=== PATIENT | male | born 1945 | race Caucasian/White ===

== ENCOUNTER 2023-04-29 15:43 | Emergency (ER) | payer MEDICARE, BC, SELFPAY ==
[2023-04-29] VITALS (10 sets, daily range): BP systolic 144–173; BP diastolic 59–83; PULSE 54–66; RESP 12–14; TEMP 36.3; O2SAT 94–97; BMI 33.2
--- NOTE | 2023-04-29 15:47 | CRLHL7_ITS ---
For Patients: As a result of the Century Cures Act, medical imaging exams and procedure reports are released immediately into your electronic medical record. You may view this report before your referring provider. If you have questions, please contact your health care provider. INDICATION: eft leg weakness, resolved, previous stroke COMPARISON: MRI/CT brain 03/06/2020 TECHNIQUE: A CT volumetric acquisition was performed of the brain without IV contrast. Please note that all CT scans at this facility use dose modulation, iterative reconstruction, and/or weight-based dosing when appropriate to reduce radiation dose to as low as reasonably achievable. FINDINGS: No intracranial hemorrhage, mass or mass effect. No midline shift or hydrocephalus. Atherosclerotic changes involving the right vertebral artery. No extra-axial fluid collection. Moreno-white differentiation is maintained. Mild bilateral maxillary sinus disease. IMPRESSION: No intracranial hemorrhage. Please note that all CT scans at this facility use dose modulation, iterative reconstruction, and/or weight-based dosing when appropriate to reduce radiation dose to as low as reasonably achievable. Dictated by Stephane Jane MD @ 04/29/2023 5:23:38 PM (Electronically Signed)
--- NOTE | 2023-04-29 16:19 | ED.NURSE ---
1539-MD meets Pt in [facility], to CT. GCS 15. No neuro deficits on arrival. Dr. Voss declines Stroke Code. 1552-Pt to Rm [address] by w/c. Hx of TIA, Afib, HTN, HLD, Triple Bypass.
--- NOTE | 2023-04-29 16:28 | CRLHL7_ITS ---
For Patients: As a result of the Century Cures Act, medical imaging exams and procedure reports are released immediately into your electronic medical record. You may view this report before your referring provider. If you have questions, please contact your health care provider. INDICATION: Acute stroke, left leg weakness, dizziness. TECHNIQUE: CTA head with contrast bolus tracking, 3D angiographic rendering using maximum intensity projection (MIP) and images permanently archived. FINDINGS: There is heavily calcified atherosclerotic plaque around the carotid siphons resulting in moderate stenoses on both sides. There is otherwise normal opacification of the intracranial vasculature. There is no large vessel occlusion. No aneurysm is identified. IMPRESSION: No large vessel occlusion. Please note that all CT scans at this facility use dose modulation, iterative reconstruction, and/or weight-based dosing when appropriate to reduce radiation dose to as low as reasonably achievable. Dictated by Pako Del Real MD @ 04/29/2023 7:45:35 PM (Electronically Signed)
--- NOTE | 2023-04-29 16:28 | ED_ITS ---
HPI - Neuro Symptoms/Deficit General Date Seen: 04/29/23 Chief Complaint: Neuro Symptoms/Altered Deficit Stated Complaint: Stroke like symptoms Time Seen by Provider: 04/29/23 15:46 Source: patient and EMS Mode of arrival: EMS Limitations: no limitations History of Present Illness HPI Narrative: Patient is a 77-year-old male presenting to emergency department after concern for stroke-like symptoms. He was brought in by EMS. While eating today at about 215 the patient said he developed a couple minutes of dizziness and states his left leg became very tense any is unable to bend it. The symptoms resolved. He states the leg became so tense it was causing his leg to push against the table and making him fall to the right side. Of note he had a previous hemorrhagic stroke which at that time he had dizziness and that was residual left leg weakness. States now he feels back to his baseline. Also states in the past he was told he a TIA and that time he had dizziness also. No history of seizures. Denies fevers, chills, weakness, headache, vision changes, abdominal pain, numbness, diarrhea, constipation, chest pain, shortness of breath. No other concerns noted at this time. Of note he is on Eliquis for AFib. Related Data Allergies Allergy/AdvReac Type Severity Reaction Status Date / Time metformin AdvReac Unknown GI upset Verified 04/29/23 17:48 Review of Systems Status of ROS: Reports: 10 or more systems reviewed and unremarkable except as noted in History and below [facility] Social History Smoking Status: Never smoker How often do you have a drink containing alcohol: never AUDIT-C Alcohol total score: 0 Non-prescribed substance use: denies use Exam Narrative: Exam Narrative: Const: Well-nourished, Well-developed, in no distress Eyes: PERRL, no conjunctival injection, and symmetrical lids HENT: Atraumatic external nose and ears. Moist mucous membranes. Neck: Symmetric, trachea midline, No thyromegaly. CVS: RRR, No murmurs or gallops. Peripheral pulses 2+ and equal in all extremities RESP: Unlabored respiratory effort. Clear to auscultation bilaterally. GI: Nontender/Nondistended, No rebound or guarding. MSK:Extremities w/o deformity, Normal Active ROM Skin: Warm, Dry. No rashes or lesions. Neuro: Normal Muscle tone, Cranial nerves 2-12 grossly intact, normal [id number], normal [id number], normal gait, normal strength 5/5 upper lower extremities bilaterally, normal sensation upper and lower extremities bilaterally, normal rapid alternating movements. Psych: Awake, Alert, & Oriented x3. Appropriate mood and affect. Const: Vital Signs, click to edit/add: Vital Signs - 24 hr 04/29/23 15:52 04/29/23 15:54 04/29/23 16:02 Temperature 97.3 F L Pulse Rate 66 64 Pulse Rate [Pulse Oximeter] 60 Respiratory Rate 14 14 14 Blood Pressure 173/81 H 158/78 H Blood Pressure [Ri ght Upper Arm] 173/81 H Pulse Oximetry 97 96 97 Oxygen Delivery Me thod Room Air 04/29/23 16:20 04/29/23 16:33 04/29/23 16:47 Temperature Pulse Rate 60 60 54 L Pulse Rate [Pulse Oximeter] Respiratory Rate 12 14 14 Blood Pressure 162/70 H 148/83 H 145/59 H Blood Pressure [Ri ght Upper Arm] Pulse Oximetry 96 96 96 Oxygen Delivery Me thod 04/29/23 17:02 04/29/23 17:58 04/29/23 18:00 Temperature Pulse Rate 55 L 65 58 L Pulse Rate [Pulse Oximeter] Respiratory Rate 14 Blood Pressure 144/64 H Blood Pressure [Ri ght Upper Arm] Pulse Oximetry 96 95 96 Oxygen Delivery Me thod 04/29/23 18:30 Temperature Pulse Rate 63 Pulse Rate [Pulse Oximeter] Respiratory Rate Blood Pressure Blood Pressure [Ri ght Upper Arm] Pulse Oximetry 94 Oxygen Delivery Me thod Course Vital Signs Vital signs: Initial Vital Signs Temperature 97.3 F L 04/29/23 15:52 Temperature Source Temporal Artery Scan 04/29/23 15:52 Pulse Rate 60 04/29/23 15:52 Pulse Rhythm Regular 04/29/23 15:52 Respiratory Rate 14 04/29/23 15:52 Blood Pressure 173/81 H 04/29/23 15:52 Blood Pressure Mean 111 H 04/29/23 15:52 Blood Pressure Position Supine 04/29/23 15:52 Pulse Oximetry 97 04/29/23 15:52 Oxygen Delivery Method Room Air 04/29/23 15:52 Vital Signs Temperature 97.3 F L 04/29/23 15:52 Pulse Rate 60 04/29/23 15:52 Respiratory Rate 14 04/29/23 15:52 Blood Pressure 173/81 H 04/29/23 15:52 Pulse Oximetry 97 04/29/23 15:52 Oxygen Delivery Method Room Air 04/29/23 15:52 Temperature 97.3 F L 04/29/23 15:52 Pulse Rate 63 04/29/23 18:30 Respiratory Rate 14 04/29/23 17:02 Blood Pressure 144/64 H 04/29/23 17:02 Pulse Oximetry 94 04/29/23 18:30 Oxygen Delivery Method Room Air 04/29/23 15:52 MDM - Neuro Symptoms/Deficit MDM Narrative Medical decision making narrative: Patient is a 77-year-old male presenting to emergency department for concern for stroke-like symptoms. When patient arrived to the emergency department I met them in the hallway and by this time the symptoms have fully resolved. He did go straight to head CT but I did not find necessary to call a code stroke. The patient he returned from CT and go assess the/RSV test, CBC, CMP, troponin, EKG urinalysis all ordered. His description of the symptoms make me concern for possible seizure. We will order CTA is once his head CT returned showing no abnormalities. CBC, CMP showed no concerning findings. COVID/flu/RSV is negative. Head CT reviewed by myself and the radiologist shows no concerning findings. CTA were ordered. They returned showing no acute concerning for causes of his symptoms. Patient has been asymptomatic his entire time emergency department. Vital signs have been stable. Urinalysis is normal. We are paging Neurology at this time. Spoke to the on-call neurologist from [facility] any states this is not classical presentation for a seizure but it could be. He does not think he needs to be started on seizure medicine at this time but does want him to follow up with Neurology outpatient. I spoke to the patient about this and he is agreeable with this plan. Patient to be discharged home Lab Data Labs: Lab Results 04/29/23 04/29/23 04/29/23 Range/Units 16:00 16:33 17:13 WBC 8.28 (4.50-11.00) K/uL RBC 4.81 (4.30-5.90) m/uL Hgb 14.5 (13.5-17.5) gm/dL Hct 44.6 (37.0-53.0) % MCV 93 (80-100) fL MCH 30 (26-34) pg MCHC 33 (32-36) gm/dL RDW Coeff of Denzel 12.9 (11.5-15.5) % Plt Count 250 (140-440) K/uL Neut % (Auto) 75.3 H (42.0-72.0) % Lymph % (Auto) 14.6 L (20-44) % Hickory % (Auto) 7.9 (0.0-11.0) % Eos % (Auto) 1.7 (0.0-7.0) % Baso % (Auto) 0.4 (0.0-3.0) % Neut # (Auto) 6.20 (1.7-7.0) K/uL Lymph # (Auto) 1.20 (0.90-2.90) K/uL [place] # (Auto) 0.70 (0.00-0.90) K/UL Eos # (Auto) 0.14 (0.00-0.50) K/uL Baso # (Auto) 0.03 (0.00-0.30) K/uL Abs Immat Gran (auto) 0.01 (0.00-0.30) K/uL Imm/Tot Granulo (auto) 0.1 % Sodium 137 (135-149) mmol/L Potassium 3.7 (3.6-5.1) mmol/L Chloride 101 (96-114) mmol/L Carbon Dioxide 26 (20-32) mmol/L Anion Gap 10 (7-15) mEq/L BUN 23 (7-30) mg/dL Creatinine 0.9 (0.5-1.5) mg/dL Estimated Creat Clear 65.89 Estimated GFR 88 ml/min Glucose 162 H (60-115) mg/dL Lactate (0.5-1.9) mmol/L Calcium 9.3 (8.4-10.6) mg/dL Total Bilirubin 0.9 (0.1-1.5) mg/dL AST 32 (12-35) U/L ALT 29 (4-50) U/L Alkaline Phosphatase 67 (40-150) U/L Troponin I 0.03 (0.01-0.04) ng/mL Total Protein 7.7 (6.0-8.3) g/dL Albumin 4.4 (3.3-5.0) g/dL Urine Color Yellow (Yellow) Urine Appearance Clear (Clear) Urine pH 6.0 (5.0-8.5) Ur Specific Saffell >= 1.030 (1.000-1.030) Urine Protein 3+ A (Negative) Urine Glucose (UA) Negative (Negative) Urine Ketones Negative (Negative) Urine Blood Trace-lysed A (Negative) Urine Nitrite Negative (Negative) Urine Bilirubin Negative (Negative) Urine Urobilinogen 1.0 (0.2-1.0) Ur Leukocyte Esterase Negative (Negative) Urine RBC 0-2 (0-2) Urine WBC 0-2 (0-5) Ur Squamous Epith Cells None (None-Few) Amorphous Sediment Few A (None) Other Sediment Few A (None) Urine Bacteria Few A (None) Hyaline Casts Few (None-Few) SARS-CoV-2 (PCR) Negative SARS-CoV-2 (Negative) Influenza Type A (PCR) Negative PCR FLU A (Negative) Influenza Type B (PCR) Negative PCR FLU B (Negative) RSV (PCR) Negative PCR RSV (Negative) 04/29/23 Range/Units 18:53 WBC (4.50-11.00) K/uL RBC (4.30-5.90) m/uL Hgb (13.5-17.5) gm/dL Hct (37.0-53.0) % MCV (80-100) fL MCH (26-34) pg MCHC (32-36) gm/dL RDW Coeff of Denzel (11.5-15.5) % Plt Count (140-440) K/uL Neut % (Auto) (42.0-72.0) % Lymph % (Auto) (20-44) % [place]ickory % (Auto) (0.0-11.0) % Eos % (Auto) (0.0-7.0) % Baso % (Auto) (0.0-3.0) % Neut # (Auto) (1.7-7.0) K/uL Lymph # (Auto) (0.90-2.90) K/uL [place] # (Auto) (0.00-0.90) K/UL Eos # (Auto) (0.00-0.50) K/uL Baso # (Auto) (0.00-0.30) K/uL Abs Immat Gran (auto) (0.00-0.30) K/uL Imm/Tot Granulo (auto) % Sodium (135-149) mmol/L Potassium (3.6-5.1) mmol/L Chloride (96-114) mmol/L Carbon Dioxide (20-32) mmol/L Anion Gap (7-15) mEq/L BUN (7-30) mg/dL Creatinine (0.5-1.5) mg/dL Estimated Creat Clear Estimated GFR ml/min Glucose (60-115) mg/dL Lactate 1.6 (0.5-1.9) mmol/L Calcium (8.4-10.6) mg/dL Total Bilirubin (0.1-1.5) mg/dL AST (12-35) U/L ALT (4-50) U/L Alkaline Phosphatase (40-150) U/L Troponin I (0.01-0.04) ng/mL Total Protein (6.0-8.3) g/dL Albumin (3.3-5.0) g/dL Urine Color (Yellow) Urine Appearance (Clear) Urine pH (5.0-8.5) Ur Specific Saffell (1.000-1.030) Urine Protein (Negative) Urine Glucose (UA) (Negative) Urine Ketones (Negative) Urine Blood (Negative) Urine Nitrite (Negative) Urine Bilirubin (Negative) Urine Urobilinogen (0.2-1.0) Ur Leukocyte Esterase (Negative) Urine RBC (0-2) Urine WBC (0-5) Ur Squamous Epith Cells (None-Few) Amorphous Sediment (None) Other Sediment (None) Urine Bacteria (None) Hyaline Casts (None-Few) SARS-CoV-2 (PCR) (Negative) Influenza Type A (PCR) (Negative) Influenza Type B (PCR) (Negative) RSV (PCR) (Negative) Imaging Data CT scan head: Radiologist's impression: No intracranial hemorrhage. Please note that all CT scans at this facility use dose modulation, iterative reconstruction, and/or weight-based dosing when appropriate to reduce radiation dose to as low as reasonably achievable. Dictated by Stephane Jane MD @ 04/29/2023 5:23:38 PM CTA head and neck: Radiologist's impression: Preliminary Report: No proximal large vessel occlusion. 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 Severe right vertebral artery origin and proximal V1 segment stenosis. Read by:?Jeovanny Boyce MD @ 04/29/2023 18:45:02 ECG Data Attestation: I personally reviewed and interpreted this ECG as follows: Prior ECG tracings: not available for review Interpretation: AFib with slow ventricular response at a rate of 57 beats per minute, normal axis, no ST or T-wave abnormalities Discharge Plan Discharge Clinical Impression: Dizziness Patient Disposition: Home, Self-Care Condition: Stable Instructions: New-Onset Seizure in Adults (ED) Additional Instructions: I do not know if this was a seizure but Neurology does want you to follow-up with them outpatient. Return to the emergency department for new or worsening symptoms. Follow Up/Referrals: Provider,Not a Local [Primary Care Provider] - Stand Alone Forms: [employer] Info Instructions
--- NOTE | 2023-04-29 16:28 | CRLHL7_ITS ---
For Patients: As a result of the Century Cures Act, medical imaging exams and procedure reports are released immediately into your electronic medical record. You may view this report before your referring provider. If you have questions, please contact your health care provider. INDICATION: Acute stroke, left leg weakness, dizziness. TECHNIQUE: CTA neck with contrast bolus tracking, 3D angiographic rendering using maximum intensity projection (MIP) and images permanently archived. FINDINGS: There is carotid atherosclerosis. There is no significant carotid artery stenosis or dissection. There is severe stenosis of the proximal right vertebral artery. There is no significant left vertebral artery stenosis or dissection. The soft tissues of the neck are within normal limits. The cervical spine is in normal alignment. Degenerative changes are noted in the cervical spine. IMPRESSION: 1. No significant carotid artery stenosis or dissection. 2. Severe proximal right vertebral artery stenosis. Please note that all CT scans at this facility use dose modulation, iterative reconstruction, and/or weight-based dosing when appropriate to reduce radiation dose to as low as reasonably achievable. Dictated by Pako Del Real MD @ 04/29/2023 7:47:40 PM (Electronically Signed)
[2023-04-29 16:42] LABS: Basophils Absolute Auto 0.03 K/uL (0.00-0.30); Basophils Percent Auto 0.4 % (0.0-3.0); Eosinophils Absolute Auto 0.14 K/uL (0.00-0.50); Eosinophils Percent Auto 1.7 % (0.0-7.0); Hematocrit 44.6 % (37.0-53.0); Hemoglobin* 14.5 gm/dL (13.5-17.5); Immature Granulocytes Abs Auto 0.01 K/uL (0.00-0.30); Immature Granulocytes Pct Auto 0.1 %; Lymphocytes Percent Auto 14.6 % (20-44); Mean Corpuscular HGB Conc 33 gm/dL (32-36); Mean Corpuscular Hemoglobin 30 pg (26-34); Mean Corpuscular Volume 93 fL (80-100); Monocytes Percent Auto 7.9 % (0.0-11.0); Neutrophils Percent Auto 75.3 % (42.0-72.0); Platelet Count* 250 K/uL (140-440); RDW Coefficient of Variation % 12.9 % (11.5-15.5); Red Blood Count 4.81 m/uL (4.30-5.90); White Blood Count* 8.28 K/uL (4.50-11.00)
[2023-04-29 16:53] LABS: PCR FLU A Negative PCR FLU A (Negative); PCR FLU B Negative PCR FLU B (Negative); PCR RSV Negative PCR RSV (Negative); SARS PCR* Negative SARS-CoV-2 (Negative)
[2023-04-29 16:54] LABS: Slide Review Reflex No
[2023-04-29 17:19] LABS: Albumin* 4.4 g/dL (3.3-5.0); Chloride* 101 mmol/L (96-114); Potassium* 3.7 mmol/L (3.6-5.1); Sodium* 137 mmol/L (135-149)
[2023-04-29 17:21] LABS: Appearance Urine Clear (Clear); Bilirubin Urine Negative (Negative); Blood Urine Trace-lysed (Negative); Color Urine Yellow (Yellow); Glucose Urine Negative (Negative); Ketones Urine Negative (Negative); Leukocyte Esterase Urine Negative (Negative); Nitrite Urine Negative (Negative); Protein Urine 3+ (Negative); Specific Gravity Urine >= 1.030 (1.000-1.030)
[2023-04-29 17:21] LABS: Creatinine* 0.9 mg/dL (0.5-1.5); Est. Creatinine Clearance* 65.89; Estimated Glomerular Filt Rate 88 ml/min
[2023-04-29 17:22] LABS: Alanine Aminotransferase* 29 U/L (4-50); Alkaline Phosphatase* 67 U/L (40-150); Anion Gap 10 mEq/L (7-15); Aspartate Amino Transferase* 32 U/L (12-35); Bilirubin Total* 0.9 mg/dL (0.1-1.5); Blood Urea Nitrogen* 23 mg/dL (7-30); Calcium* 9.3 mg/dL (8.4-10.6); Carbon Dioxide* 26 mmol/L (20-32); Glucose* 162 mg/dL (60-115); Total Protein* 7.7 g/dL (6.0-8.3)
[2023-04-29 17:33] LABS: RBC Urine 0-2 (0-2)
[2023-04-29 17:34] LABS: Amorphous Sediment Urine Few; Bacteria Urine Few; Other Sediment Urine Few; WBC Urine 0-2 (0-5)
[2023-04-29 17:34] LABS: Troponin I* 0.03 ng/mL (0.01-0.04)
[2023-04-29 17:35] LABS: Hyaline Casts Urine Few (None-Few)
[2023-04-29 18:56] LABS: Lactate* 1.6 mmol/L (0.5-1.9)
--- NOTE | 2023-04-29 19:39 | ED.NURSE ---
Report given to MARIA EUGENIA Shepherd.
== END 2023-04-29 19:53 | disposition home or self-care (01) ==
PROVIDERS: Emergency Provider Student in an Organized Health Care Education/Training Program; PCP Family Medicine
DX: R42 Dizziness and giddiness (principal)
CPT/HCPCS: 36415; 70450; 70496; 70498; 80053; 81001; 83605; 84484; 85025; 87086; 87631; 93005; 99284; 99285; Q9967